=== PATIENT | male | born 1975 | race Caucasian/White ===

== ENCOUNTER 2022-04-27 18:52 | Emergency (ER) | payer OTHER, SELFPAY ==
[2022-04-27 19:37] VITALS: BP 155/100; PULSE 86; RESP 18; TEMP 35.9; O2SAT 98; BMI 34.3
--- NOTE | 2022-04-27 20:13 | ED.NURSE ---
Visual Acuity OU 20/25 OD 20/25 OS 20/70
[2022-04-27] MEDS: diphenhydrAMINE 25 MG CAPSULE 50 MG PO (20:14)
--- NOTE | 2022-04-27 20:26 | ED.EYEPROB ---
HPI - Eye Problem General Date Seen: 04/27/22 Chief complaint: Eye Problems Stated complaint: Left eye swollen Time Seen by Provider: 04/27/22 18:57 Source: patient and family Mode of arrival: ambulatory Limitations: no limitations History of Present Illness HPI Narrative: Patient is a very nice 46-year-old gentleman who presents here with his significant other with left eye issues, he was driving home at approximately 5:00 a.m. when he noticed his left eye was itchy, and started rubbing it, he got home and noticed that the left eye seems swollen. He does not remember get anything in his eye today but he was outside all day long. No fevers chills no runny nose or any other symptoms associated with this he has never before had a allergic reaction like this and is not allergic to any medications is he knows. He is not having any pain in his eye, he has no double vision he has been able to move it around he thinks his visual sensation is normal. chief complaint: other Onset (ago): hour(s) Onset description: gradual Duration: constant Location: left eye Place: street/outdoors Mechanism: none Severity: moderate Treatments Prior to Arrival: irrigated eye Related Data Patient tetanus UTD: Yes Home Medications Medication Instructions Recorded Confirmed No Known Home Medications 04/27/22 04/27/22 Allergies Allergy/AdvReac Type Severity Reaction Status Date / Time No Known Drug Allergies Allergy Verified 04/27/22 19:41 Review of Systems Status of ROS: Reports: 6 or more systems reviewed and unremarkable except as noted in History and below [facility] Social History Smoking Status: Never smoker How often do you have a drink containing alcohol: monthly or less AUDIT-C Alcohol total score: 1 Non-prescribed substance use: denies use Exam Narrative: Exam Narrative: Patient is seen in room 4, he is in no distress speaking to me normally but there is clearly edema of his sclera noted, he has some redness noted of his conjunctiva but there is no conjunctival edema noted. The cornea and eye itself is entirely normal, is pupils are equal round reactive to light, extraocular muscles are normal but is an impressive amount of scleral edema. No blood within his eye, and I put some Pontocaine drops in his eye, this did not help nor hinder, upper lid is everted and normal, lower lid is checked and no foreign body, fluorescein is used in his eye, and there is no evidence of any uptake suggestive of abrasion. Slit lamp is use, there is no abnormality other than scleral edema. Normal preauricular nodes, TMs are normal rest of his face is entirely Const: Vital Signs, click to edit/add: Vital Signs - 24 hr 04/27/22 19:37 Temperature 96.6 F L Pulse Rate [Pulse Oximeter] 86 Respiratory Rate 18 Blood Pressure [Le ft Upper Arm] 155/100 H Pulse Oximetry 98 Oxygen Delivery Me thod Room Air Documenting provider has reviewed patient's vital signs: yes Course Vital Signs Vital signs: Initial Vital Signs Temperature 96.6 F L 04/27/22 19:37 Temperature Source Temporal Artery Scan 04/27/22 19:37 Pulse Rate 86 04/27/22 19:37 Respiratory Rate 18 04/27/22 19:37 Blood Pressure 155/100 H 04/27/22 19:37 Blood Pressure Mean 118 04/27/22 19:37 Blood Pressure Position Sitting 04/27/22 19:37 Pulse Oximetry 98 04/27/22 19:37 Oxygen Delivery Method 04/27/22 19:37 Vital Signs Temperature 96.6 F L 04/27/22 19:37 Pulse Rate 86 04/27/22 19:37 Respiratory Rate 18 04/27/22 19:37 Blood Pressure 155/100 H 04/27/22 19:37 Pulse Oximetry 98 04/27/22 19:37 Oxygen Delivery Method 04/27/22 19:37 Temperature 96.6 F L 04/27/22 19:37 Pulse Rate 86 04/27/22 19:37 Respiratory Rate 18 04/27/22 19:37 Blood Pressure 155/100 H 04/27/22 19:37 Pulse Oximetry 98 04/27/22 19:37 Oxygen Delivery Method 04/27/22 19:37 MDM - Eye Problem MDM Narrative Medical decision making narrative: I think this is like an allergic-type reaction with that amount of scleral edema, I can find no evidence of a foreign body, I think a reasonable course here would be oral prednisone along with some use of oral Benadryl, and we will put him on some antibiotic drops just to cover him. He did have evidence of decreased visual acuity in his left eye, on testing. Follow-up with the eye clinic here locally or worry goes in [place] the next couple days if he is no improvement back here if things worsen. Informed consent risks benefits and side effects given over medication Differential Diagnosis Differential diagnosis: Likely corneal abrasion, conjunctivitis, acute iritis, hyphema, periorbital cellulitis, subconjunctival hemorrhage, glaucoma, corneal ulcer and ruptured globe Medical Records Attestation: I reviewed the patient's medical records. Discharge Plan Discharge Clinical Impression: Allergic conjunctivitis of left eye Patient Disposition: Home w/ Parent or Adult Condition: Stable Instructions: How to Use Eye Drops (ED), Conjunctivitis (ED) Additional Instructions: I think that this more likely is allergic reaction to something as it occurred like you say when he came home. I do not think this is something severe, as the testing so far is negative, however affecting her vision, as noted on your testing with the eye chart. Let us try the prednisone, some Benadryl, you can continue the prednisone as directed, the Benadryl 50 mg every 6 hours. I will put you on some eyedrops for a bacterial infection but I really do not think that this is related to. I never aspirate if you were contact lenses please do not be wearing these. If your not improve then I think follow-up at 1 of the eye clinics to get your eye check would be important. Return here if the vision markedly changes, fevers chills, or inability to close her eye. Prescriptions: No Action No Known Home Medications Stand Alone Forms: [employer] Info Instructions
== END 2022-04-27 20:43 | disposition home or self-care (01) ==
LOC: ED 20:25
PROVIDERS: Emergency Provider Family Medicine
DX: H10.12 Acute atopic conjunctivitis, left eye (principal)
CPT/HCPCS: 99283; 99284; A9270